=== PATIENT | male | born 1970 | race Caucasian/White ===

== ENCOUNTER 2017-03-28 04:44 | Emergency (ER) | payer SELFPAY ==
[~2017-03-28] VITALS: Ht 188 cm; Wt 88.6 kg
[~2017-03-28 04:44] MED LIST: CLIN150 PO; LORT5TAB PO; NAPR-576 PO; SULF1TAB47 PO
[2017-03-28 04:49] VITALS: BP 140/69; PULSE 84; RESP 16; TEMP 98.5; O2SAT 98
[2017-03-28] MEDS ORDERED: SODIUM CHLOR 0.9% 1000 ML INJ 1,000 ML IV ONE (04:59)
[2017-03-28] MEDS ORDERED: SODIUM CHLORIDE 0.9% FLUSH 10 ML FLUSH IVF PRN (05:00)
[2017-03-28] MEDS ORDERED: ASPI325T PO (05:05)
--- NOTE | 2017-03-28 05:11 | PD ---
HPI Chief Complaint: Numbness/Tingling Time Seen by Provider: 04:59 Travel History International Travel<30 days: No Contact w/Intl Traveler<30days: No Traveled to known affect area: No History of Present Illness HPI This is a 46-year-old gentleman with a previous history of hypertension, hyperlipidemia secondary to obesity, who presents today after having a syncopal episode when he got up to use the restroom. The patient states he got up to use the restroom and the next thing he remembers is waking up on the floor. The patient reports tingling and numbness to his right hand. He states he felt it in his left hand immediately after the event and now that has resolved but he still feels tingling and prickly sensation in his right hand. He denies any weakness at this time. He denies any head pain. He does report posterior neck pain. The patient has not had any previous history of syncopal episodes. He states he has had episodes where he is gotten dizzy from standing after sitting. He denies any chest pain, palpitations. PFSH Past Medical History Hx Anticoagulant Therapy: Yes (DAILY ASPIRIN ) GERD: Yes Triglycerides - High: Yes Tetanus Vaccination: < 5 Years Past Surgical History Appendectomy: Yes Cardiac Surgery: Yes Social History Alcohol Use: Yes (OCCASIONALY ) Tobacco Use: Yes Substance Use: No Allergies-Medications (Allergen,Severity, Reaction): Coded Allergies: Augmentin (Verified Allergy, Severe, 07/08/11) Imitrex (Verified Allergy, Severe, 07/08/11) Penicillin (Verified Allergy, Severe, 07/08/11) Zomig (Verified Allergy, Severe, 07/08/11) Reported Meds & Prescriptions Reported Meds & Active Scripts Active Bactrim Ds (Trimethoprim/Sulfamethoxazole) Tab 1 Tab PO BID 10 Days Cleocin (Clindamycin HCl) 150 Mg Cap 2 Tab PO QID 10 Days Lortab 5/500 (Acetaminophen/Hydrocodone Bitart) 5 Mg/500 Mg Tab 1-2 Tab PO Q6HPRN FOR PAIN Reported Aspirin 325 Mg Tab 325 Mg PO DAILY Naproxen 500 Mg Tab 500 Mg PO Review of Systems Except as stated in HPI: all other systems reviewed are Neg General / Constitutional: No: Fever, Chills Eyes: No: Blurred Vision, Photophobia HENT: Positive: Headaches ("full sensation" in his head.), Neck Pain, No: Lightheadedness, Neck Stiffness Cardiovascular: No: Chest Pain or Discomfort, Palpitations Respiratory: No: Cough, Shortness of Breath Gastrointestinal: No: Nausea, Diarrhea, Abdominal Pain Musculoskeletal: Positive: Pain (neck.), No: Weakness Neurologic: Positive: Syncope, Headache ("full sensation in the head."), Sensory Disturbance (tingling and prickly sensation in the right hand. Previous tingling and prickly sensation in his left hand that has resolved.), No: Weakness, Change in Mentation Psychiatric: No: Anxiety, Depression Physical Exam Narrative GENERAL: Well-developed well-nourished gentleman in no acute respiratory distress. SKIN: Focused skin assessment warm/dry. HEAD: Atraumatic. Normocephalic. EYES: Pupils equal and round. No scleral icterus. No injection or drainage. ENT: No nasal bleeding or discharge. Mucous membranes pink and moist. NECK: Trachea midline. Patient has subjective paraspinous tenderness from C2 down to see 6. There is no posterior spinous tenderness or deformity. CARDIOVASCULAR: Regular rate and rhythm. No murmur appreciated. RESPIRATORY: No accessory muscle use. Clear to auscultation. Breath sounds equal bilaterally. GASTROINTESTINAL: Abdomen soft, non-tender, nondistended. MUSCULOSKELETAL: No obvious deformities. No clubbing. No cyanosis. No edema. NEUROLOGICAL: Awake and alert. No obvious cranial nerve deficits. Motor grossly within normal limits in bilateral upper and lower extremities. Normal speech. Patient has subjective tingling and prickly sensation to his right hand. Data Data Last Documented VS Vital Signs Date Time Temp Pulse Resp B/P Pulse Ox O2 Delivery O2 Flow Rate FiO2 03/28/17 04:49 98.5 84 16 140/69 98 Orders Electrocardiogram (03/28/17 04:59) Complete Blood Count With Diff (03/28/17 04:59) Comprehensive Metabolic Panel (03/28/17 04:59) Ct Brain W/O Iv Contrast(Rout) (03/28/17 04:59) Ct Cerv Spine W/O Contrast (03/28/17 04:59) Ecg Monitoring (03/28/17 04:59) Iv Access Insert/Monitor (03/28/17 04:59) Oximetry (03/28/17 04:59) Sodium Chloride 0.9% Flush (Ns Flush) (03/28/17 05:00) Sodium Chlor 0.9% 1000 Ml Inj (Ns 1000 M (03/28/17 04:59) Mri C Spine W/O Contrast (03/28/17 06:14) Labs Laboratory Tests Test 03/28/17 05:00 White Blood Count 13.0 TH/MM3 Red Blood Count 4.27 MIL/MM3 Hemoglobin 13.4 GM/DL Hematocrit 39.9 % Mean Corpuscular Volume 93.3 FL Mean Corpuscular Hemoglobin 31.3 PG Mean Corpuscular Hemoglobin 33.6 % Concent Red Cell Distribution Width 13.3 % Platelet Count 237 TH/MM3 Mean Platelet Volume 7.2 FL Neutrophils (%) (Auto) 86.3 % Lymphocytes (%) (Auto) 8.3 % Monocytes (%) (Auto) 4.0 % Eosinophils (%) (Auto) 1.1 % Basophils (%) (Auto) 0.3 % Neutrophils # (Auto) 11.2 TH/MM3 Lymphocytes # (Auto) 1.1 TH/MM3 Monocytes # (Auto) 0.5 TH/MM3 Eosinophils # (Auto) 0.1 TH/MM3 Basophils # (Auto) 0.0 TH/MM3 CBC Comment DIFF FINAL Differential Comment Sodium Level 142 MEQ/L Potassium Level 3.6 MEQ/L Chloride Level 108 MEQ/L Carbon Dioxide Level 25.6 MEQ/L Anion Gap 8 MEQ/L Blood Urea Nitrogen 11 MG/DL Creatinine 1.10 MG/DL Estimat Glomerular Filtration 72 ML/MIN Rate Random Glucose 111 MG/DL Calcium Level 8.8 MG/DL Total Bilirubin 0.3 MG/DL Aspartate Amino Transf 18 U/L (AST/SGOT) Alanine Aminotransferase 21 U/L (ALT/SGPT) Alkaline Phosphatase 56 U/L Total Protein 6.9 GM/DL Albumin 3.9 GM/DL [facility] Medical Decision Making Medical Screen Exam Complete: Yes Emergency Medical Condition: Yes Differential Diagnosis Vasovagal versus cardiac syncope versus electrolyte abnormalities versus anemia. Peripheral nerve palsy of the cervical spine versus central cord syndrome Narrative Course 46-year-old male who presents after a syncopal episode. The patient's sounds like he had a vasovagal episode. He reports tingling and numbness to his left and right hand. He states his left hand is resolving however still having some tingling and prickly sensation of his right hand. The patient's cervical spine shows no evidence of acute injury. Patient's laboratory tests are within normal limits. He has an MRI pending to rule out cord contusion. The patient was signed out to Dr. Jena Barrow physician replacing this physician, who will follow up on the results and make appropriate disposition. Diagnosis Primary Impression: Syncope Additional Impressions: Cervical spine pain Paresthesia and pain of both upper extremities Matthew Loredo MD March 28, 2017 05:11
[2017-03-28 05:16] LABS: AUTOMATED NEUTROPHIL # 11.2 TH/MM3 (1.8-7.7); BASOPHIL % 0.3 % (0.0-2.0); EOSINOPHIL # 0.1 TH/MM3 (0-0.4); EOSINOPHIL % 1.1 % (0.0-4.0); HEMATOCRIT 39.9 % (39.0-51.0); HEMO FLAGS DIFF FINAL; LYMPH % 8.3 % (9.0-44.0); LYMPHOCYTE # 1.1 TH/MM3 (1.0-4.8); MEAN CELL VOLUME 93.3 FL (80.0-100.0); MEAN CORPUSCULAR HEMOGLOBIN 31.3 PG (27.0-34.0); MEAN CORPUSCULAR HGB CONC 33.6 % (32.0-36.0); NEUT % 86.3 % (16.0-70.0); PLATELET COUNT 237 TH/MM3 (150-450); RED BLOOD COUNT 4.27 MIL/MM3 (4.50-5.90); RED CELL DISTRIBUTION WIDTH 13.3 % (11.6-17.2)
[2017-03-28 05:51] LABS: ALT (GPT) 21 U/L (12-78); ANION GAP 8 MEQ/L (5-15); AST (GOT) 18 U/L (15-37); BICARBONATE 25.6 MEQ/L (21.0-32.0); BLOOD UREA NITROGEN 11 MG/DL (7-18); CHLORIDE 108 MEQ/L (98-107); GLOMERULAR FILTRATION RATE 72 ML/MIN (>89); POTASSIUM 3.6 MEQ/L (3.5-5.1); SODIUM (NA) 142 MEQ/L (136-145)
[2017-03-28 05:53] LABS: ALKALINE PHOSPHATASE 56 U/L (45-117); TOTAL BILIRUBIN ADULT 0.3 MG/DL (0.2-1.0)
--- NOTE | 2017-03-28 05:57 | RADRPT ---
EXAM DATE/TIME: 03/28/2017 05:21 [facility] COMPARISON: CT BRAIN W/O CONTRAST, February 03, 2014, 17:36. INDICATIONS : Patient woke up with left sided upper extremity numbness. RADIATION DOSE: 56.35 CTDIvol (mGy) MEDICAL HISTORY : None SURGICAL HISTORY : None. ENCOUNTER: Initial ACUITY: 1 day PAIN SCALE: 0/10 LOCATION: cranial TECHNIQUE: Multiple contiguous axial images were obtained of the head. Using automated exposure control and adj ustment of the mA and/or kV according to patient size, radiation dose was kept as low as reasonably a chievable to obtain optimal diagnostic quality images. FINDINGS: CEREBRUM: The ventricles are normal for age. No evidence of midline shift, mass lesion, hemorrhage or acute in farction. No extra-axial fluid collections are seen. POSTERIOR FOSSA: The cerebellum and brainstem are intact. The 4th ventricle is midline. The cerebellopontine angle i s unremarkable. EXTRACRANIAL: The visualized portion of the orbits is intact. Chronic bilateral sinus disease. SKULL: The calvaria is intact. No evidence of skull fracture. No significant change compared to the prior study. CONCLUSION: 1. Unremarkable and stable CT brain compared to 2013. 2. Bilateral chronic sinus disease of the maxillary sinuses. Sohail Huizar MD on March 28, 2017 at 5:54 Board Certified Radiologist. This report was verified electronically.
--- NOTE | 2017-03-28 06:00 | RADRPT ---
EXAM DATE/TIME: 03/28/2017 05:21 [facility] COMPARISON: CT CERVICAL SPINE W/O CONTRAST, February 03, 2014, 17:36. INDICATIONS : Patient woke up with neck pain and left sided upper extremity numbness. RADIATION DOSE: 28.87 CTDIvol (mGy) MEDICAL HISTORY : None SURGICAL HISTORY : None. ENCOUNTER: Initial ACUITY: 1 day PAIN SCALE: 8/10 LOCATION: neck TECHNIQUE: Volumetric scanning of the cervical spine was performed. Multiplanar reconstructions in the sagittal, coronal and oblique axial planes were performed. Using automated exposure control and adjustment o f the mA and/or kV according to patient size, radiation dose was kept as low as reasonably achievable to obtain optimal diagnostic quality images. FINDINGS: Today's exam is compared to 2013. There is stable primary degenerative changes involving the mid to l ower cervical spine with disc space narrowing at C5-6. The bony structures are grossly intact. No acu te bony fracture. No spondylolisthesis. Focal mild stable central bulging at C2-3. Mild broad-based b ulging at C3-4, C4-5, C5-6 and C6-7. The neural foramina appear patent bilaterally. No significant ch sheila compared to the prior study. CONCLUSION: 1. No acute bony fracture. 2. Primary bony degenerative changes with some disc degeneration and broad-based bulging as described above. Sohail Huizar MD on March 28, 2017 at 5:55 Board Certified Radiologist. This report was verified electronically.
--- NOTE | 2017-03-28 07:35 | EKG ---
Date Performed: 03/28/2017 Time Performed: 05:39:57 PTAGE: 46 years EKG: Sinus rhythm NORMAL ECG NO PREVIOUS TRACING DOCTOR: Siddharth Turner Interpretating Date/Time 03/28/2017 07:32:49
--- NOTE | 2017-03-28 08:49 | RADRPT ---
EXAM DATE/TIME: 03/28/2017 08:11 [facility] COMPARISON: No previous studies available for comparison. INDICATIONS : Bilateral upper extremity pain. MEDICAL HISTORY : None. SURGICAL HISTORY : Inguinal hernia repair. ENCOUNTER: Initial ACUITY: 1 day PAIN SCORE: 6/10 LOCATION: Paraspinal TECHNIQUE: Multiplanar, multisequence MRI examination of the cervical spine was performed. FINDINGS: VERTEBRAE: Normal vertebral body height. Homogeneous marrow signal. ALIGNMENT: No evidence of subluxation. CORD: Normal configuration and signal. POST FOSSA: The cerebellar tonsils are normal in position. C2-C3: Small generalized protrusion without canal stenosis. The neural foramina are patent bilaterally. C3-C4: Small generalized protrusion without canal stenosis. There is no evidence of disc herniation or spina l canal stenosis. The neural foramina are patent bilaterally. C4-C5: The thecal sac has a normal configuration. There is no evidence of disc herniation or spinal canal s tenosis. The neural foramina are patent bilaterally. C5-C6: Mild generalized protrusion abuts ventral thecal sac and causes mild canal stenosis. Uncovertebral sp urring causes mild to moderate bilateral neural foraminal narrowing. C6-C7: Moderate generalized protrusion abuts the ventral cord and causes mild canal stenosis. The neural for sebastian are patent bilaterally. C7-T1: The thecal sac has a normal configuration. There is no evidence of disc herniation or spinal canal s tenosis. The neural foramina are patent bilaterally. CONCLUSION: 1. Multilevel disc protrusions as described above, there is mild canal stenosis at C5-6 and C6-7 leve ls. 2. Neural foraminal narrowing at C5-6. Ignacio Duarte MD on March 28, 2017 at 8:44 Board Certified Radiologist. This report was verified electronically.
[2017-03-28 10:16] VITALS: BP 131/75; PULSE 84; RESP 16; O2SAT 98
--- NOTE | 2017-03-28 15:23 | PD ---
Data Data Last Documented VS Vital Signs Date Time Temp Pulse Resp B/P Pulse Ox O2 Delivery O2 Flow Rate FiO2 03/28/17 10:16 84 16 131/75 98 Room Air 03/28/17 04:49 98.5 Orders Electrocardiogram (03/28/17 04:59) Complete Blood Count With Diff (03/28/17 04:59) Comprehensive Metabolic Panel (03/28/17 04:59) Ct Brain W/O Iv Contrast(Rout) (03/28/17 04:59) Ct Cerv Spine W/O Contrast (03/28/17 04:59) Ecg Monitoring (03/28/17 04:59) Iv Access Insert/Monitor (03/28/17 04:59) Oximetry (03/28/17 04:59) Sodium Chloride 0.9% Flush (Ns Flush) (03/28/17 05:00) Sodium Chlor 0.9% 1000 Ml Inj (Ns 1000 M (03/28/17 04:59) Mri C Spine W/O Contrast (03/28/17 06:14) Labs Laboratory Tests Test 03/28/17 05:00 White Blood Count 13.0 TH/MM3 Red Blood Count 4.27 MIL/MM3 Hemoglobin 13.4 GM/DL Hematocrit 39.9 % Mean Corpuscular Volume 93.3 FL Mean Corpuscular Hemoglobin 31.3 PG Mean Corpuscular Hemoglobin 33.6 % Concent Red Cell Distribution Width 13.3 % Platelet Count 237 TH/MM3 Mean Platelet Volume 7.2 FL Neutrophils (%) (Auto) 86.3 % Lymphocytes (%) (Auto) 8.3 % Monocytes (%) (Auto) 4.0 % Eosinophils (%) (Auto) 1.1 % Basophils (%) (Auto) 0.3 % Neutrophils # (Auto) 11.2 TH/MM3 Lymphocytes # (Auto) 1.1 TH/MM3 Monocytes # (Auto) 0.5 TH/MM3 Eosinophils # (Auto) 0.1 TH/MM3 Basophils # (Auto) 0.0 TH/MM3 CBC Comment DIFF FINAL Differential Comment Sodium Level 142 MEQ/L Potassium Level 3.6 MEQ/L Chloride Level 108 MEQ/L Carbon Dioxide Level 25.6 MEQ/L Anion Gap 8 MEQ/L Blood Urea Nitrogen 11 MG/DL Creatinine 1.10 MG/DL Estimat Glomerular Filtration 72 ML/MIN Rate Random Glucose 111 MG/DL Calcium Level 8.8 MG/DL Total Bilirubin 0.3 MG/DL Aspartate Amino Transf 18 U/L (AST/SGOT) Alanine Aminotransferase 21 U/L (ALT/SGPT) Alkaline Phosphatase 56 U/L Total Protein 6.9 GM/DL Albumin 3.9 GM/DL MDM Supervised Visit with NESSA: No Narrative Course I took over care of this patient from Dr. Loredo. The patient is a 46-year- old male who presents to the emergency department having had an episode of syncope with closed head injury. He is reporting numbness in his right second and third digits. An MRI of the cervical spine was obtained which demonstrates some thecal sac impingement at the C6-C7 level which is consistent with his symptoms. I called Dr. Milton the neurosurgeon on-call. He was in the operating room and was unable to return my call but I told the patient that we would have to wait for his case to complete so we could discuss his symptoms. The patient eloped without talking to the medical staff. Diagnosis Primary Impression: Syncope Additional Impressions: Paresthesia and pain of both upper extremities Cervical spine pain Patient Instructions: General Instructions Departure Forms: Tests/Procedures Disposition: 01 DISCHARGE HOME Condition: Stable Jena Barrow MD March 28, 2017 15:23
== END 2017-03-28 11:42 | disposition home or self-care (01) ==
LOC: NEPE 04:44
DX: R55 Syncope and collapse (principal); M54.2 Cervicalgia; M79.602 Pain in left arm; M79.601 Pain in right arm; R20.2 Paresthesia of skin; Z79.82 Long term (current) use of aspirin; Z72.0 Tobacco use
CPT/HCPCS: 70450; 72125; 72141; 80053; 85025; 93005; 99284; J7030